=== PATIENT | female | born 1995 | race Two or more races ===

== ENCOUNTER 2020-12-07 14:48 | Emergency (ER) | payer OTHER ==
[~2020-12-07] VITALS: Ht 154.9 cm; Wt 49.9 kg
== END 2020-12-07 17:40 | disposition home or self-care (01) ==
LOC: ER 14:48
DX: S00.83XA Contusion of other part of head, initial encounter (principal); S30.0XXA Contusion of lower back and pelvis, initial encounter; W18.39XA Other fall on same level, initial encounter; Y93.89 Activity, other specified; Y92.098 Other place in other non-institutional residence as the place of occurrence of the external cause; Y99.8 Other external cause status